=== PATIENT | male | born 1965 | race Caucasian/White ===

== ENCOUNTER → 2024-12-19 | Outpatient (CLI) | payer BC ==
--- NOTE | 2024-12-19 07:08 | CT ---
EXAMINATION TYPE: CT abdomen pelvis wo con DATE OF EXAM: 12/19/2024 COMPARISON: NONE CLINICAL INDICATION: Male, 59 years old with history of R10.9 UNSPECIFIED ABDOMINAL PAIN, Lt flank pa in, TECHNIQUE: CT scan of the abdomen and pelvis is performed , patient injected with mL of ., (none if empty) Oral contrast used: without Oral Contrast (none if empty) CT DLP: 744.4 mGycm, Automated exposure control for dose reduction was used. FINDINGS: Within the limitations of noncontrast study, the following observations are made. LUNG BASES: Coronary artery calcification in the LAD is present. LIVER/GB: No significant abnormality is appreciated. PANCREAS: No significant abnormality is seen. SPLEEN: No significant abnormality is seen. ADRENALS: No significant abnormality is seen. KIDNEYS: No renal stones or hydronephrosis is present bilaterally. There is 3.0 cm simple appearing thin-walled cyst laterally left kidney axial image 50 that does not require follow-up. BOWEL: Few scattered colonic diverticula. More prominent diverticulosis distally. There is focal mild fat stranding in the left lower quadrant axial image 93 distal left colon level consistent with acut e diverticulitis. No free air. No well-formed fluid collection identified. No abnormal small or large bowel dilatation. PROSTATE/SEMINAL VESICLES: Mildly enlarged prostate consistent with BPH is present. LYMPH NODES: No greater than 1cm abdominal or pelvic lymph nodes are appreciated. OSSEOUS STRUCTURES: Increased epidural fat in the lower lumbar spine. Mild to moderate disc space kip rowing with vacuum disc phenomenon at the lumbosacral junction. OTHER: Small to moderate-sized fat-containing left inguinal hernia. IMPRESSION: Mild acute uncomplicated diverticulitis left lower quadrant at level of the distal left c olon. [facility], , 12/19/2024 7:06 AM
== END | disposition home or self-care (01) ==
LOC: RADCTMAIN 06:27
PROVIDERS: ATTEND Family Medicine
DX: K57.32 Diverticulitis of large intestine without perforation or abscess without bleeding (principal)
CPT/HCPCS: 74176